=== PATIENT | female | born 1980 | race Two or more races ===

== ENCOUNTER 2018-12-04 13:43 | Emergency (ER) | payer MEDICAID, OTHER ==
[~2018-12-04] VITALS: Ht 162.6 cm; Wt 110.0 kg
[2018-12-04 13:48] VITALS: BP 144/71
[2018-12-04] MEDS ORDERED: HYDROCODONE/ACETAMINOPHEN 5/325MG TABLET PO ONE (15:15)
[2018-12-04] MEDS ORDERED: HYDROCORTISONE 2.5% RECTAL CREAM 30GM PR SCH (15:15)
[2018-12-04] MEDS ORDERED: LIDOCAINE HCL 2% JELLY 5ML TOP ONE (15:15)
[2018-12-04] MEDS ORDERED: KETOROLAC 30MG/ML VIAL IM ONE (16:00)
== END 2018-12-04 17:52 | disposition home or self-care (01) ==
LOC: ER 13:43
DX: K64.4 Residual hemorrhoidal skin tags (principal); Z88.6 Allergy status to analgesic agent
CPT/HCPCS: 81025; 96372; 99283; J1885

== ENCOUNTER 2019-08-29 22:30 | Emergency (ER) | payer MEDICAID, OTHER ==
[~2019-08-29] VITALS: Ht 162.6 cm; Wt 127.0 kg
[2019-08-29] MEDS ORDERED: IBUPROFEN 600MG TABLET PO ONE (23:30)
[2019-08-30 00:10] VITALS: BP 139/76
== END 2019-08-30 00:11 | disposition home or self-care (01) ==
LOC: ER 22:30
DX: K08.89 Other specified disorders of teeth and supporting structures (principal); Z90.49 Acquired absence of other specified parts of digestive tract; Z88.6 Allergy status to analgesic agent
CPT/HCPCS: 99283